=== PATIENT | female | born 1945 | race Caucasian/White ===

== ENCOUNTER → 2016-12-26 | Day surgery (SDC) | payer MEDICARE ==
[~2016-12-26] MED LIST: ADULT LOW DOSE81 MG; EFFER-K20 MEQ; HYDROCHLOROTHIA25 M1; METOPROLOL50 MG; NATURAL VITAM1000 MG; VITAMIN E
[2016-12-26 09:36] LABS: HEMOGLOBIN 12.7 g/dL (12.2-16.2); LYMPH # 1.6 K/mm3 (0.7-4.5); LYMPH % 29.8 % (10-50.0)
[2016-12-26 09:39] LABS: BUN 14 mg/dL (7-18); GFR (ESTIMATED) 70 ML/MIN (59-)
--- NOTE | 2016-12-26 12:38 | RADIOLOGY REPORT PS360 ---
CARDIAC CATHETERIZATION DATE OF CATHETERIZATION:12/26/2016 11:37 AM PROCEDURES: 1. Left heart catheterization 2. Left ventriculogram 3. Selective coronary angiogram INDICATION FOR TEST: 1. High pretest likelihood for coronary artery disease 2. Class III and IV angina 3. Abnormal EKG suggesting previous anterior myocardial infarction Informed consent was obtained prior to the procedure. COMPLICATIONS: None ESTIMATED BLOOD LOSS: Less than 10 ml. TECHNIQUE: One percent lidocaine used to anesthetize the right anterior aspect of the wrist. The right radial artery was accessed via the Seldinger technique. A 6 [place] sheath was placed in the right radial artery. 2.5 mg of verapamil, 800 mcg of nitroglycerin and 5000 U Heparin were given through the arterial sheath. The Nati catheter was also used to perform left heart catheterization and left ventriculography. At the end of the procedure the patient was transferred to the post-op holding area in stable condition for arterial sheath removal. ANGIOGRAPHIC RESULTS: 1. The left main artery normal 2. The left anterior descending artery has proximal and mid vessel 10% nonflow limiting stenoses. The LAD is a small vessel and does not supply much of the anterior wall 3. The circumflex artery is a nondominant vessel giving rise to a small to medium high first obtuse marginal artery consistent with the ramus intermedius. Ramus has an ostial 80% stenosis and is a 2 mm vessel while the nondominant circumflex artery also has an ostial 80% stenosis supplies a medium amount of myocardium. 4. The right coronary artery is a massively large dominant vessel and has proximal 20% stenoses mid vessel 20% stenoses. The posterior lateral ventricular branch is a massively large vessel which wraps over and supplies a large portion of the lateral and anterior wall while the posterior descending artery is also a very large vessel which supplies entire inferior wall over to the apex and wraps around a portion of the apex supplying the anterior wall. This vessel is free of disease 5. The MCLEAN ventriculogram reveals normal 65% 6. The left ventricular end-diastolic pressure 10 mmHg IMPRESSION: 1. Single vessel disease involving the ostial nondominant circumflex artery 2. Coronary arteries as described above 3. Normal ejection fraction 4. Normal left ventricular end-diastolic pressure 5. 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 At this point I strongly favor medical management 2. We're unable to control patient's angina with medical management I would consider stenting the circumflex artery. Most likely the ramus intermedius would be lost due to the ramus and the circumflex artery both originating from the same ostium in the left main artery. 3. I believe she will respond well to medical management 4. LDL less than 55 5. Risk factor modification
[2016-12-26 15:32] VITALS: BP 155/100
== END ==
LOC: CATHLAB 08:51
PROVIDERS: Internal Medicine
PROC: B2111ZZ Fluoroscopy of Multiple Coronary Arteries using Low Osmolar Contrast (ICD-10-PCS; 2016-12-26)
PROC: B2151ZZ Fluoroscopy of Left Heart using Low Osmolar Contrast (ICD-10-PCS; 2016-12-26)
PROC: 4A023N7 Measurement of Cardiac Sampling and Pressure, Left Heart, Percutaneous Approach (ICD-10-PCS; principal; 2016-12-26 13:30)
DX: I25.119 Atherosclerotic heart disease of native coronary artery with unspecified angina pectoris (principal); R94.31 Abnormal electrocardiogram [ECG] [EKG]; R42 Dizziness and giddiness; R06.00 Dyspnea, unspecified; I10 Essential (primary) hypertension; Z87.891 Personal history of nicotine dependence
CPT/HCPCS: C1769; J1644; Q9967